=== PATIENT | female | born 1975 | race Caucasian/White ===

== ENCOUNTER 2020-06-01 14:57 | Emergency (ER) | payer OTHER, SELFPAY ==
[2020-06-01 15:09] VITALS: BP 134/86; PULSE 90; RESP 16; O2SAT 98
--- NOTE | 2020-06-01 15:38 | ED.GENADULT ---
HPI - General Adult General Chief complaint: Extremity Injury, Lower Stated complaint: left foot pain Time Seen by Provider: 06/01/20 15:17 Source: patient and RN notes reviewed Mode of arrival: ambulatory Limitations: no limitations History of Present Illness HPI narrative: Patient presents today complaining of a 3-day history of left foot pain. Pain originates in the first MTP and radiates along the plantar aspect of the foot. She does report some tingling to the first toe and medial foot. Pain increases with weightbearing, or movement of the toes and foot. Currently rates her pain 9/10 and has been taking Midol without relief. She has also applied ice. No history of gout. No history of injury or trauma. MD complaint: Left foot pain Related Data Allergies Allergy/AdvReac Type Severity Reaction Status Date / Time hydromorphone Allergy Mild Vomiting Verified 06/01/20 15:01 Review of Systems Review of Systems: Narrative: CONSTITUTIONAL: Denies body aches, fever, chills, or sweats. EYES: Denies visual changes, redness, or discharge. ENT: Denies rhinorrhea, congestion, sore throat, or otalgia. CARDIOVASCULAR: Denies chest pain, palpitations, or edema. RESPIRATORY: Denies cough or dyspnea. GASTROINTESTINAL: Denies abdominal pain, nausea, vomiting, or diarrhea. GENITOURINARY: Denies dysuria or hematuria. SKIN: Denies rash, itching, or wounds. MUSCULOSKELETAL: Denies back pain, or myalgia. + Foot pain NEUROLOGIC: Denies headache, numbness, or weakness. +tingling to left foot PSYCH: Denies depression or anxiety. PMFSH Surgical History Surgical History (Updated 06/01/20 @ 15:59 by Kaylie Wagner, [facility], ) H/O tubal ligation History of cholecystectomy Comments At time of signature, I have reviewed and agree with nursing past medical, surgical, social and family history unless otherwise noted. Please see nursing chart for further information. There is no relevant family history pertinent to the presenting complaint Exam Narrative: Exam Narrative: GENERAL: Well-appearing, well-nourished. Pain out of proportion to exam findings. HEAD: Normocephalic, atraumatic. EYES: EOMI. No redness or drainage. Conjunctivae normal. ENT: Mucous membranes pink and moist. NECK: Normal AROM. Supple. No lymphadenopathy. CHEST: No respiratory distress. Clear to auscultation. HEART: Regular rate and rhythm. No murmur appreciated. Normal peripheral pulses. EXTREMITIES: Left foot:Tenderness, mild erythema to 1st MTP. Tenderness extends proximally along the plantar aspect of the foot. No edema or ecchymosis. Distal sensation. Capillary normal. Pedal pulse normal. Limited AROM due to pain. Right foot normal. No tenderness to the plantar fascia. SKIN: Warm, dry, no rash. Capillary refill normal. Normal skin turgor. NEURO: No focal deficits. Alert and oriented x3. Gait steady. PSYCH: Normal affect. No signs of depression or anxiety. Course Vital Signs Vital signs: Vital Signs Pulse Rate 90 06/01/20 15:09 Respiratory Rate 16 06/01/20 15:09 Blood Pressure 134/86 06/01/20 15:09 Pulse Oximetry 98 06/01/20 15:09 Pulse Rate 90 06/01/20 15:09 Respiratory Rate 16 06/01/20 15:09 Blood Pressure 134/86 06/01/20 15:09 Pulse Oximetry 98 06/01/20 15:09 Reviewed. Pt has been instructed to follow up with her PCP regarding her elevated blood pressure today. Medical Decision Making Differential Diagnosis Differential Diagnosis: Foot strain, fracture, gout, cellulitis, plantar fasciitis, Riggins's neuroma, bunion Vital Signs Vital Signs: Vital Signs Pulse Rate 90 06/01/20 15:09 Respiratory Rate 16 06/01/20 15:09 Blood Pressure 134/86 06/01/20 15:09 Pulse Oximetry 98 06/01/20 15:09 Pulse Rate 90 06/01/20 15:09 Respiratory Rate 16 06/01/20 15:09 Blood Pressure 134/86 06/01/20 15:09 Pulse Oximetry 98 06/01/20 15:09 Critical Care Time Critical Care Time Critical Care Time
== END 2020-06-01 15:44 | disposition home or self-care (01) ==
PROVIDERS: Emergency Provider Nurse Practitioner
DX: M10.9 Gout, unspecified (principal)
CPT/HCPCS: 99213; G0463

== ENCOUNTER 2021-11-21 11:26 | Observation (INO) | payer OTHER, SELFPAY ==
[2021-11-21] VITALS (12 sets, daily range): BP systolic 107–132; BP diastolic 48–83; PULSE 88–125; RESP 14–32; TEMP 36.3–37.3; O2SAT 99–100
--- NOTE | ~2021-11-21 | US_ITS ---
EXAMINATION: US pelvic complete w TV DATE: 11/22/2021 10:38 INDICATION: Pelvic pain. TECHNIQUE: Multiple transabdominal and transvaginal sonographic images of the pelvis were obtained. COMPARISON: CT abdomen and pelvis 11/21/2021 FINDINGS: TRANSABDOMINAL ULTRASOUND: The uterus measures 9.4 x 7.1 x 4.5 cm. There is no free fluid in the pelvis. TRANSVAGINAL ULTRASOUND: The endometrial complex measures 6 mm in thickness. There are nabothian cysts in the cervix. The righ t ovary measures 5.7 x 4.5 x 3.2 cm. There is a 5.0 x 4.0 x 2.4 cm cyst with thin septations in right ovary. The left ovary measures 3.4 x 1.9 x 2.4 cm. There is normal vascular flow in the ovaries. Th ere is physiologic fluid in the pelvis. IMPRESSION: 1. 5.0 x 4.0 x 2.4 cm cyst with thin septations in right ovary, likely benign. The differential diagn osis includes follicular cyst and tubo-ovarian abscess. Reviewed, dictated and finalized at location A. E CARRIAGE OPERATOR IMPRESSION: 1. 5.0 x 4.0 x 2.4 cm cyst with thin septations in right ovary, likely benign. The differential diagnosis includes follicular cyst and tubo-ovarian abscess.
--- NOTE | ~2021-11-21 | CT_ITS ---
EXAMINATION: CT abdomen pelvis w con DATE: 11/21/2021 13:02 INDICATION: Left lower quadrant abdominal pain. TECHNIQUE: Computed tomography (CT) of the abdomen and pelvis was performed with 100 mL Omnipaque 350 intravenous contrast. Automated exposure control and iterative reconstruction technique were employe d. The dose-length product was 232.31 mGy-cm. COMPARISON: CT abdomen 03/04/2007 FINDINGS: The visualized portions of the lung bases are clear without pneumonia or pleural effusion. The heart size is normal. No pericardial effusion. The liver is normal. There are changes of cholecys tectomy. The spleen, pancreas, adrenal glands, and right kidney are normal. There is moderate atrophy of left kidney. There are two 3 mm stones in left kidney. There are no dilated loops of bowel. There is fat stranding in the lower abdomen. There are no pathologically enlarged lymph nodes. There is no free intraperitoneal fluid. There is severe lumbar spondylosis and mild thoracic spondylosis. IMPRESSION: 1. Nonspecific fat stranding in lower abdomen, which may be seen with inflammation or edema. 2. Moderate atrophy of left kidney with two nonobstructing 3 mm stones. Reviewed, dictated and finalized at location A. [facility] IMPRESSION: 1. Nonspecific fat stranding in lower abdomen, which may be seen with inflammat ion or edema. 2. Moderate atrophy of left kidney with two nonobstructing 3 mm stones.
[2021-11-21] MEDS: SODIUM CHLORIDE 0.9% IV 1,000 ML 999 ML IV CONT (12:15)
[2021-11-21] MEDS: FAMOTIDINE 20 MG/2 ML VIAL IV PUSH ×2 (12:16→21:17)
[2021-11-21] MEDS: ONDANSETRON INJ 4 MG/2 ML VIAL IV PUSH (12:16)
[2021-11-21 12:25] LABS: Basophils Percent Auto 0.3 % (0.2-1.2); Hematocrit 36.2 % (37.0-47.0); Hemoglobin 12.2 g/dL (12.0-15.0); Immature Granulocyte Absolute 0.08 K/mm3 (0.00-0.031); Immature Granulocyte Percent A 0.5 % (0-0.5); Lymphocytes Absolute Auto 1.09 K/mm3 (0.9-3.2); Lymphocytes Percent Auto 7.4 % (18.3-44.2); Mean Corpuscular HGB Conc 33.7 g/dl (32-36); Mean Corpuscular Hemoglobin 28.6 pg (26-34); Mean Platelet Volume 9.6 fl (7.4-10.4); Neutrophils Absolute Auto 12.6 K/mm3 (1.3-6.7); Neutrophils Percent Auto 84.8 % (45.5-73.1); Platelet Count Result 258 k/mm3 (150-375); Red Blood Count 4.26 M/mm3 (4.2-5.4); Red Cell Distribution Width 13.5 % (11.5-14.5); White Blood Count 14.8 K/mm3 (4.5-10.0)
[2021-11-21 12:39] LABS: Alanine Aminotransferase 27 U/L (4-35); Albumin Level 3.8 g/dL (3.5-5.1); Alkaline Phosphatase 133 U/L (38-126); Anion Gap 6 mmol/L (8-16); Aspartate Amino Transferase 32 U/L (14-36); Bilirubin,Total 0.8 mg/dL (0.2-1.3); Blood Urea Nitrogen 9 mg/dL (7-17); Calcium 8.4 mg/dL (8.4-10.2); Carbon Dioxide 26 mmol/L (22-30); Chloride 100 mmol/L (98-107); Estimated Glomerular Filt Rate > 60; Glucose 117 mg/dL (65-110); Lipase 54 U/L (23-300); Potassium 3.9 mmol/L (3.4-5.0); Sodium 132 mmol/L (137-145)
[2021-11-21 12:40] LABS: Add Urine Microscopic? YES; Appearance Urine Cloudy (Clear); Bacteria Urine Trace /hpf; Bilirubin Urine Negative (Negative); Blood Urine 2+ (Negative); Budding Yeast Urine Present /hpf; Color Urine Amber (Yellow); Glucose Urine UA Negative (Negative); Ketones Urine Trace mg/dL (Negative); Leukocyte Esterase Ur 3+ LEU/UL (Negative); Mucus Urine Few /lpf; Nitrate Urine Negative (Negative); Protein Urine 2+ mg/dL (Negative); RBC Urine >75 /hpf (0-2); Specific Grav Ur 1.023 (1.001-1.035); Squamous Epithelial Cell Urine Many /hpf (Few); WBC Urine >75 /hpf
[2021-11-21] MEDS: FLUCONAZOLE 150 MG TABLET PO (13:38)
--- NOTE | 2021-11-21 14:20 | PM.IMHP ---
H&P: HPI History of Present Illness Date/Time: 11/21/21 14:20 Chief Complaint: Lower abdominal pain. Narrative: This is a 46-year-old female without significant medical history who presented to the emergency department for evaluation of lower abdominal pain. She reports the insidious onset of diffuse lower abdominal pain for approximately 1 weeks time which she describes as a squeezing or twisting pain though it is occasionally sharp and shooting. It has been constant since the outset and she has moments where it is manageable and there are times when it is quite severe. She has been taking ibuprofen with little benefit. The pain does not radiate and she has not discovered any significant alleviating factors. Her pain is worse with palpation and position changes but again it is pretty constant. Associated symptoms include nausea, emesis x1, subjective fever, and sweats. She was seen by her doctor on 11/17/2021 at which time she was diagnosed with urinary tract infection and she was prescribed Macrobid. Despite compliance with the antibiotic, her symptoms have persisted and have not improved whatsoever. Interestingly she has no urinary symptoms and she specifically denies dysuria, urinary urgency, hesitancy, frequency, and incontinence. With further questioning she endorses vaginal discharge that she describes as white/yellow and similar to discharge she has experienced with yeast infections. She does not think that she has been exposed to sexually transmitted infections. Review of Systems Review of Systems: Twelve systems were reviewed. No cold or flu symptoms. She denies cough. She had a loose stool today. Except as documented, all other systems were reviewed and are negative. [facility] Past Medical History Medical History (Updated 11/21/21 @ 22:04 by Martha Howard PA-C) Depression with anxiety Gastroesophageal reflux disease Migraine headache Surgical History Surgical History (Updated 11/21/21 @ 14:26 by Martha Howard PA-C) History of cholecystectomy History of tubal ligation Family History Family History (Updated 11/21/21 @ 22:00 by Martha Howard PA-C) Other Hypertension Social History Social History (Updated 11/21/21 @ 22:00 by Martha Howard PA-C) Social History: Surrogate decision maker: Isra Moreau, friend. Code status: Full code. Smoking status: Never smoker Alcohol intake: never Substance use: never Substance use type: does not use Meds Home Medications and Allergies Home Medications Medication Instructions Recorded Confirmed Type nitrofurantoin monohyd/m-cryst 100 cap PO Q12H 11/21/21 11/21/21 History Allergies Allergy/AdvReac Type Severity Reaction Status Date / Time hydromorphone Allergy Mild Vomiting Verified 11/21/21 16:00 Vital Signs Vital Signs - 24 hr 11/21/21 11:42 Pulse Rate 125 H Respiratory Rate 16 Blood Pressure 125/70 Pulse Oximetry 100 Exam Narrative: General: Mildly ill-appearing female in the semi-Rubin position. Weight: 66.2 kg. HEENT: PERRL, EOMI. Sclerae anicteric. Tacky mucous membranes. Neck: Supple. Respiratory: Lungs are clear to auscultation bilaterally. Cardiovascular: Regular rate and rhythm with S1-S2. Gastrointestinal: Abdomen is soft and nondistended with positive bowel sounds. She is tender to palpation diffusely throughout the lower abdomen. No guarding or rebound tenderness. No CVA tenderness. Genitourinary: Deferred. Skin: Warm and dry. No rash or lesions on limited exam. Extremities: No cyanosis, clubbing, or edema. Radial and pedal pulses intact. Neurological: Alert. Cranial nerves 2-12 are grossly intact. No gross focal deficits to casual conversation. Psychiatric: Pleasant and cooperative with normal mood and affect. H&P: Results Labs Labs: Short CBC 11/21/21 Range/Units 12:18 WBC 14.8 H (4.5-10.0) K/mm3 Hgb 12.2 (12.0-15.0) g/dL Hct 36.2 L (37.0-47.0) % Plt Count 258 (1
--- NOTE | 2021-11-21 14:22 | ED.GENADULT ---
HPI - General Adult General Chief complaint: Abdominal Pain Stated complaint: abdominal pain Time Seen by Provider: 11/21/21 11:39 Source: patient and RN notes reviewed Mode of arrival: ambulatory Limitations: no limitations History of Present Illness HPI narrative: Patient is a 46-year-old female who presents with severe belly pain that has intensified over the last several days she 5 days ago was started on Macrobid for presumed urinary tract infection with urinary frequency and urgency and left low back pain she notes that since starting the antibiotic she has also developed some white discharge and some vaginal irritation she denies concern for STDs. Denies vomiting does note nausea notes chills sweats as well Related Data Allergies Allergy/AdvReac Type Severity Reaction Status Date / Time hydromorphone Allergy Mild Vomiting Verified 11/21/21 12:19 Review of Systems Review of Systems: All systems reviewed & are unremarkable except as noted in HPI and below PMFSH Surgical History Surgical History H/O tubal ligation History of cholecystectomy Exam Narrative: GENERAL: ill-appearing, well-nourished, uncomfortable appearing, and in no acute distress. HEAD: Normocephalic, atraumatic. EYES: PERRLA and EOMI. ENT: Nares clear, no rhinorrhea or epistaxis. Mucous membranes moist. CHEST: Clear to auscultation. No respiratory distress. No wheezes rales or rhonchi HEART: Regular rate and rhythm. No murmur heard. Normal peripheral pulses. ABDOMEN: Soft, tenderness to palpation across the lower quadrants of the abdomen, nondistended, normal active bowel sounds. EXTREMITIES: Normal range of motion. No edema. SKIN: Warm, dry, no rash. NEURO: No focal deficits. Alert and oriented x3. Cranial nerves II through XII grossly intact PSYCH: Normal mood and affect. Course Course Emergency Course: Patient presented for abdominal pain urinary symptoms found to have urinary tract infection given fluids IV antibiotics will be placed into the hospital her tachycardia is improved with interventions she has continued to have significant discomfort in the lower abdomen so she will be placed in hospital with continued hydration antibiotics and pain management Consultations Consultation #1: Discussed case with hospitalist who has agreed to accept the patient Date: 11/21/21 Time: 14:26 Vital Signs Vital signs: Vital Signs Pulse Rate 125 H 11/21/21 11:42 Respiratory Rate 16 11/21/21 11:42 Blood Pressure 125/70 11/21/21 11:42 Pulse Oximetry 100 11/21/21 11:42 Pulse Rate 125 H 11/21/21 11:42 Respiratory Rate 16 11/21/21 11:42 Blood Pressure 125/70 11/21/21 11:42 Pulse Oximetry 100 11/21/21 11:42 Medical Decision Making MDM Narrative Medical decision making narrative: Patient with likely urinary tract infection and possible yeast infection she was given antibiotic and Diflucan she will be placed in hospital her tachycardia has improved with fluids and medication. Was Vital Signs Vital Signs: Vital Signs Pulse Rate 125 H 11/21/21 11:42 Respiratory Rate 16 11/21/21 11:42 Blood Pressure 125/70 11/21/21 11:42 Pulse Oximetry 100 11/21/21 11:42 Pulse Rate 125 H 11/21/21 11:42 Respiratory Rate 16 11/21/21 11:42 Blood Pressure 125/70 11/21/21 11:42 Pulse Oximetry 11/21/21 11:42 Lab Data Result diagrams: 11/21/21 12:18 11/21/21 12:18 Labs: Lab Results 11/21/21 11/21/21 11/21/21 Range/Units 12:18 12:18 12:18 WBC 14.8 H (4.5-10.0) K/mm3 RBC 4.26 (4.2-5.4) M/mm3 Hgb 12.2 (12.0-15.0) g/dL Hct 36.2 L (37.0-47.0) % MCV 85.0 (80-100) fl MCH 28.6 (26-34) pg MCHC 33.7 (32-36) g/dl RDW 13.5 (11.5-14.5) % Plt Count 258 (150-375) k/mm3 MPV 9.6 (7.4-10.4) fl Immature Gran % (Auto) 0.5 (0-0.5) % Neut % (Auto) 84.8 H (45.5-73.1) % Lymph % (Auto)
[2021-11-21] MEDS: KETOROLAC 30 MG/ML VIAL (*BKC) IV PUSH (14:38)
[2021-11-21] MEDS: LACTATED RINGERS 1,000 ML 125 ML IV CONT (16:11)
[2021-11-21 16:22] LABS: Hematocrit 35.6 % (37.0-47.0); Hemoglobin 11.7 g/dL (12.0-15.0); Mean Corpuscular HGB Conc 32.9 g/dl (32-36); Mean Corpuscular Hemoglobin 28.4 pg (26-34); Mean Corpuscular Volume 86.4 fl (80-100); Mean Platelet Volume 9.7 fl (7.4-10.4); Platelet Count Result 274 k/mm3 (150-375); Red Blood Count 4.12 M/mm3 (4.2-5.4); Red Cell Distribution Width 13.5 % (11.5-14.5); White Blood Count 15.4 K/mm3 (4.5-10.0)
[2021-11-21 16:30] LABS: Lactic Acid Reflex 1.2 mmol/L (0.7-2.1)
--- NOTE | 2021-11-21 16:31 | ADMGEN ---
This patient, Dora Davis, was admitted to Medical Room 250-01. Patient/family oriented to hospital policies and general routines including ID bracelet, bed and alarms, visiting hours, pain management, procedures, bathroom and other care routines, personal items, smoking policy, room service/diet, and visiting hours. Information on how to activate the Rapid Response Team has been discussed. Patient/Family are encouraged to report perceived risks to care and to ask questions if they do not understand what they are told or what they should do.
[2021-11-21 16:59] LABS: CRP 24.4 mg/dL (<1.0)
[2021-11-21] MEDS: MORPHINE SULFATE (*CRX) 2 MG/ML INJ IV PUSH (23:00)
[2021-11-21] MEDS: DOXYCYCLINE 100 MG/NS 100 ML 100 MG/100 ML BAG IVPB (23:01)
[2021-11-22] VITALS (13 sets, daily range): BP systolic 118–130; BP diastolic 55–69; PULSE 88–107; RESP 16–33; TEMP 36.1–37.1; O2SAT 95–100
[2021-11-22] MEDS: HYDROcodone/acetaminophen (*CRX) 5-325 MG TABLET 1 TAB PO (00:07)
[2021-11-22] MEDS: metroNIDAZOLE 500 MG/ISO 100ML 500 MG/100 ML BAG 100 MG IVPB ×3 (00:07→23:34)
[2021-11-22] MEDS: MORPHINE SULFATE (*CRX) 2 MG/ML INJ IV PUSH ×2 (03:29→09:01)
[2021-11-22 05:38] LABS: Basophils Percent Auto 0.3 % (0.2-1.2); Eosinophils Absolute Auto 0.1 K/mm3 (0-0.3); Eosinophils Percent Auto 0.4 % (0-4.4); Hemoglobin 10.5 g/dL (12.0-15.0); Immature Granulocyte Absolute 0.09 K/mm3 (0.00-0.031); Immature Granulocyte Percent A 0.7 % (0-0.5); Lymphocytes Absolute Auto 1.05 K/mm3 (0.9-3.2); Lymphocytes Percent Auto 8.5 % (18.3-44.2); Mean Corpuscular HGB Conc 32.8 g/dl (32-36); Mean Corpuscular Hemoglobin 28.4 pg (26-34); Mean Corpuscular Volume 86.5 fl (80-100); Mean Platelet Volume 9.6 fl (7.4-10.4); Monocytes Percent Auto 7.8 % (2.6-8.5); Neutrophils Absolute Auto 10.1 K/mm3 (1.3-6.7); Neutrophils Percent Auto 82.3 % (45.5-73.1); Platelet Count Result 242 k/mm3 (150-375); Red Cell Distribution Width 13.5 % (11.5-14.5); White Blood Count 12.3 K/mm3 (4.5-10.0)
[2021-11-22 05:53] LABS: Anion Gap 6 mmol/L (8-16); Blood Urea Nitrogen 11 mg/dL (7-17); Carbon Dioxide 25 mmol/L (22-30); Chloride 105 mmol/L (98-107); Estimated Glomerular Filt Rate > 60; Glucose 121 mg/dL (65-110); Magnesium 1.9 mg/dL (1.6-2.3); Sodium 136 mmol/L (137-145)
--- NOTE | 2021-11-22 09:19 | WPDCN ---
Assessment and Plan Assessment and plan (1) Pelvic pain: Code(s): R10.2 - Pelvic and perineal pain Status: Acute Assessment and Plan: Check pelvic ultrasound (order entered) to image uterus and ovaries. I plan to give update after U/S performed (2) Menorrhagia: Code(s): N92.0 - Excessive and frequent menstruation with regular cycle Status: Acute Assessment and Plan: Check pelvic ultrasound. She would benefit from treatment as outpatient. 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 Coughing, sneezing, bending all exacerbate it. She reports periods Q2-3 weeks lasting 6-7 days heavy bleeding for past year or so. No Cp, SOB, dizziness. Occasional nausea and emesis. She has had both constipation and diarrhea over past few days. She has beige creamy vaginal discharge with slight odor. Last intercourse over 1 month ago. No vaginal itching or burning. + dysuria, hematuria, and frequency. Her boyfriend, who she had been living with, 08/2021. She was evicted from their apartment and is now homeless. [facility] but had to return the vehicle. She has had a hard time keeping a job due to no transportation Review of Systems Review of Systems: All systems reviewed & are unremarkable except as noted in HPI and below PMFSH Past Medical History Medical History (Updated 11/22/21 @ 09:25 by Yvonne Hennessy MD) Depression with anxiety Gastroesophageal reflux disease Migraine headache Surgical History Surgical History (Updated 11/21/21 @ 14:26 by Martha Howard PA-C) History of cholecystectomy History of tubal ligation Family History Family History (Updated 11/21/21 @ 22:00 by Martha Howard PA-C) Other Hypertension Social History Social History (Updated 11/21/21 @ 22:00 by Martha Howard PA-C) Social History: Surrogate decision maker: Isra Moreau, friend. Code status: Full code. Smoking status: Never smoker Alcohol intake: never Substance use: never Substance use type: does not use Meds Home Medications and Allergies Home Medications Medication Instructions Recorded Confirmed Type nitrofurantoin monohyd/m-cryst 100 cap PO Q12H 11/21/21 11/21/21 History Allergies Allergy/AdvReac Type Severity Reaction Status Date / Time hydromorphone Allergy Mild Vomiting Verified 11/21/21 16:00 Vital Signs Vital Signs - 24 hr 11/21/21 11:35 11/21/21 11:42 11/21/21 11:45 Temperature Pulse Rate 125 H 121 H Respiratory Rate 16 15 Blood Pressure 125/70 Pulse Oximetry 100 100 100 11/21/21 12:00 11/21/21 12:15 11/21/21 12:30 Temperature Pulse Rate 117 H 116 H 113 H Respiratory Rate 29 H 26 H 32 H Blood Pressure Pulse Oximetry 100 100 99 11/21/21 14:10 11/21/21 14:15 11/21/21 14:30 Temperature Pulse Rate 108 H 96 97 Respiratory Rate 14 22 H 22 H Blood Pressure 131/83 Pulse Oximetry 100 100 11/21/21 15:12 11/21/21 16:00 11/21/21 19:54 Temperature 37.3 C 36.3 C L Pulse Rate 105 H 88 97 Respiratory Rate 16 18 18 Blood Pressure 132/70 107/66 108/48 L Pulse Oximetry 100 100 100 11/22/21 00:00 11/22/21 00:34 11/22/21 00:36 Temperature 36.9 C Pulse Rate 106 H Respiratory Rate 18 Blood Pressure 122/55 L Pulse Oximetry 100 02
--- NOTE | 2021-11-22 10:33 | PM.IMPN ---
Progress Note: A&P Assessment and Plan (1) Combined abdominal and pelvic pain: Code(s): R10.9 - Unspecified abdominal pain; R10.2 - Pelvic and perineal pain Status: Acute Assessment and Plan: Presented with diffuse low abdominal/pelvic pain and CT of the abdomen/pelvis showed fat stranding in the lower abdomen appreciate Gynecology consultation transvaginal ultrasound is pending continue with ceftriaxone, doxycycline, and metronidazole given her complains of vaginal discharge she had a 1 time dose of Diflucan in the emergency department will check gonorrhea, chlamydia, RPR, hepatitis, HIV mild leukocytosis is improving. Patient is afebrile. (2) Abnormal computed tomography of abdomen and pelvis: Code(s): R93.5 - Abnormal findings on diagnostic imaging of other abdominal regions, including retroperitoneum Status: Acute Assessment and Plan: please see above (3) Abnormal urinalysis: Code(s): R82.90 - Unspecified abnormal findings in urine Status: Acute Assessment and Plan: UA was abnormal on presentation. Patient denies urinary symptoms with the exception of a single episode of hematuria that has since resolved urine culture is pending continue IV Rocephin as above (4) Nephrolithiasis: Code(s): N20.0 - Calculus of kidney Status: Acute Assessment and Plan: CT showed moderate atrophy of left kidney with two nonobstructing 3 mm stones unlikely to be contributing to symptoms (5) Depression with anxiety: Code(s): F41.8 - Other specified anxiety disorders Status: Acute Assessment and Plan: Patient has history of depression and anxiety Many current social issues including of her partner, loss of her job, and eviction from her apartment Currently staying with her sons friend. Appreciate care coordination consult She will benefit from referral to a therapist/counselor Denies suicidal ideation Subjective Date/time seen: 11/22/21 10:33 Interval history: Date of service: 11/22/2021 Dora Davis is a 46-year-old female with a history of depression, anxiety, GERD, migraines who is seen in follow up for abdominal pain. she stated that for the past 1 week she has had right lower quadrant pain and has been diffusely tender across the lower abdomen, occasionally radiating to her right lower back. States her pain is worse if she coughs or sneezes. At this time her pain is 8/10. she denies fever or chills but does endorse sweats. She denies dysuria, frequency, urgency. She does state that she had some hematuria that she described as like my period Though she had her menstrual cycle over 1 week ago. Yesterday she had a loose stool. Also yesterday she had a single episode of creamy vaginal discharge. It was not clumpy or like cottage cheese. no more vaginal discharge or bleeding today. She states that she is not concerned sexually transmitted infections. She has had a recent partner and states that they were in a monogamous relationship though they did not use protection against STDs. She said he never mentioned any concerns about STDs when she had been with him at the doctor in the past. unfortunately this partner has and she has been having a difficult time coping with his loss. She has many other social issues going on at this time as well. She was recently let go from her job at [email or web address] and was subsequently evicted from her apartment about 2 weeks ago. She is currently staying with her son's friend, though notes that he may be evicted soon too. She would like to speak with a laboratory animal caretaker. Review of Systems Review of Systems: All systems reviewed & are unremarkable except as noted in HPI and below Exam Narrative: General: thin, well-appearing 46 year-old female, sitting up in bed, comfortable, NARD Neuro: awake, alert and oriented x4, speech clear, no focal n
[2021-11-22] MEDS: DOXYCYCLINE 100 MG/NS 100 ML 100 MG/100 ML BAG IVPB ×2 (11:25→22:39)
[2021-11-22 11:28] LABS: Hepatitis B Surface Antigen Negative (Negative)
[2021-11-22 11:33] LABS: HAV RESULT Negative (Negative); Hepatitis B Core IgM Result Negative (Negative)
[2021-11-22 11:37] LABS: HIV 1/2 Ab P24 Ag Result Negative (Negative)
[2021-11-22 11:45] LABS: Hepatitis C Virus Antibody Negative (Negative)
[2021-11-22] MEDS: ACETAMINOPHEN 325 MG TABLET 650 MG PO ×2 (13:53→21:10)
[2021-11-22] MEDS: polyethylene glycoL 3350 17 GM POWD.PACK PO (15:01)
--- NOTE | 2021-11-22 16:49 | PC.NURSE ---
On 11/22/2021, the student, Zora Centeno, provided care and completed [facility] documentation on this patient. I have reviewed this student's documentation and agree with the findings.
[2021-11-22] MEDS: DOCUSATE SODIUM 100 MG CAPSULE PO (21:09)
[2021-11-23 04:13] VITALS: BP 130/64; PULSE 80; RESP 18; TEMP 36.2; O2SAT 100
[2021-11-23 05:51] LABS: Hematocrit 31.2 % (37.0-47.0); Hemoglobin 10.4 g/dL (12.0-15.0); Mean Corpuscular HGB Conc 33.3 g/dl (32-36); Mean Corpuscular Volume 83.9 fl (80-100); Mean Platelet Volume 9.8 fl (7.4-10.4); Platelet Count Result 286 k/mm3 (150-375); Red Blood Count 3.72 M/mm3 (4.2-5.4); Red Cell Distribution Width 13.5 % (11.5-14.5); White Blood Count 7.5 K/mm3 (4.5-10.0)
[2021-11-23 05:56] LABS: Rapid Plasma Reagin Non-Reactive (NonReactive)
[2021-11-23 06:35] LABS: Anion Gap 11 mmol/L (8-16); Blood Urea Nitrogen 7 mg/dL (7-17); CRP 22.4 mg/dL (<1.0); Calcium 8.6 mg/dL (8.4-10.2); Carbon Dioxide 25 mmol/L (22-30); Chloride 103 mmol/L (98-107); Estimated Glomerular Filt Rate > 60; Glucose 101 mg/dL (65-110); Potassium 3.8 mmol/L (3.4-5.0); Sodium 139 mmol/L (137-145)
[2021-11-23] MEDS: ACETAMINOPHEN 325 MG TABLET 650 MG PO (07:35)
[2021-11-23] MEDS: DOCUSATE SODIUM 100 MG CAPSULE PO ×2 (07:40→20:15)
[2021-11-23 10:00] VITALS: BP 139/79; PULSE 83; RESP 16; TEMP 36.3; O2SAT 100
[2021-11-23] MEDS: DOXYCYCLINE 100 MG/NS 100 ML 100 MG/100 ML BAG IVPB ×2 (10:02→23:33)
[2021-11-23] MEDS: metroNIDAZOLE 500 MG/ISO 100ML 500 MG/100 ML BAG 100 MG IVPB ×2 (11:00→23:31)
--- NOTE | 2021-11-23 12:27 | PM.GYNPNOP ---
SCRAP CUTTER - A/P Assessment and plan (1) Right ovarian cyst: Code(s): N83.201 - Unspecified ovarian cyst, right side Status: Acute Assessment and Plan: 5 cm right ovarian cyst vs TOA. She is agreeable to start control pill to help cyst resolve more quickly and has no contraindication. Will plan repeat U/S in 6-8 weeks (will arrange as outpatient). Since this also could be a TOA, which is an infectious process, I would recommend continuing antibiotics as outpatient to complete 14 day course. Flagyl and doxycycline would be apropriate as long as she agrees no to drink alcohol while taking it (2) Menorrhagia: Code(s): N92.0 - Excessive and frequent menstruation with regular cycle Status: Acute Assessment and Plan: control also should help with frequent heavy periods. Will follow up as outpatient within the next month or so to see how bleeding and pain is, and to arrange repeat U/S. She also hasn't had pap in around 14 years, so we'll plan that in the office setting as well (3) Pelvic pain: Code(s): R10.2 - Pelvic and perineal pain Status: Acute Assessment and Plan: Improving Time Spent With Patient Time: Total time spent is greater than 50% in coordination of care (as documented) at patient's floor/unit and/or counseling patient: Time with patient: less than 15 minutes SCRAP CUTTER- PN:Subj Post-Op Subjective Date/time seen: 11/23/21 12:27 She is feeling much better today. Most of her pain has resolved. She still has lower right back pain and RLQ pain, which is much less severe than yesterday. No N/V. No new complaints Interval history: Date of service: 11/22/2021 Dora Davis is a 46-year-old female with a history of depression, anxiety, GERD, migraines who is seen in follow up for abdominal pain. she stated that for the past 1 week she has had right lower quadrant pain and has been diffusely tender across the lower abdomen, occasionally radiating to her right lower back. States her pain is worse if she coughs or sneezes. At this time her pain is 8/10. she denies fever or chills but does endorse sweats. She denies dysuria, frequency, urgency. She does state that she had some hematuria that she described as like my period Though she had her menstrual cycle over 1 week ago. Yesterday she had a loose stool. Also yesterday she had a single episode of creamy vaginal discharge. It was not clumpy or like cottage cheese. no more vaginal discharge or bleeding today. She states that she is not concerned sexually transmitted infections. She has had a recent partner and states that they were in a monogamous relationship though they did not use protection against STDs. She said he never mentioned any concerns about STDs when she had been with him at the doctor in the past. unfortunately this partner has and she has been having a difficult time coping with his loss. She has many other social issues going on at this time as well. She was recently let go from her job at [employer] and was subsequently evicted from her apartment about 2 weeks ago. She is currently staying with her son's friend, though notes that he may be evicted soon too. She would like to speak with a medicare biller. Review of Systems Review of Systems: All systems reviewed & are unremarkable except as noted in HPI and below Exam Const: General: healthy appearing, no acute distress, alert and awake Resp: Auscultation: clear to auscultation bilaterally Cardio: Rate: regular rate Rhythm: regular rhythm GI: Inspection: non-distended GI Palp: Yes Tenderness to palpation present (GI) (mild RLQ), No Guarding due to palpation present (GI) and No Rebound tenderness present Extrem: General: no pedal edema and no calf tenderness Psych: Mental Status: mental status grossly normal SCRAP CUTTER - PN: Obj Data Vital Signs Vital Signs: Vital Signs - 24 hr 11/22/21 14:38 11/22/21 18:25 11/22/21
[2021-11-23 14:00] VITALS: BP 135/84; PULSE 87; RESP 18; TEMP 36.1; O2SAT 100
--- NOTE | 2021-11-23 16:24 | PM.IMPN ---
Progress Note: A&P Assessment and Plan (1) Combined abdominal and pelvic pain: Code(s): R10.9 - Unspecified abdominal pain; R10.2 - Pelvic and perineal pain Status: Acute Assessment and Plan: Presented with diffuse low abdominal/pelvic pain and CT of the abdomen/pelvis showed fat stranding in the lower abdomen appreciate Gynecology consultation transvaginal ultrasound showed cyst of the right ovary, likely benign with differential including tubo-ovarian abscess per CASHIER MANAGER, she will be started on OCPs to help cyst resolve continue with doxycycline, and metronidazole given concerns for possible TOA. Will plan to complete 14 total days of antibiotics she had a 1 time dose of Diflucan in the emergency department gonorrhea and chlamydia pending. RPR, hepatitis, HIV negative. leukocytosis is improving. CRP trending down slightly and will recheck tomorrow. Patient is afebrile. she is aware of need for outpatient gynecology follow up (2) Right ovarian cyst: Code(s): N83.201 - Unspecified ovarian cyst, right side Status: Acute Assessment and Plan: Please see above (3) Abnormal urinalysis: Code(s): R82.90 - Unspecified abnormal findings in urine Status: Acute Assessment and Plan: UA was abnormal on presentation. Patient denies urinary symptoms with the exception of a single episode of hematuria that has since resolved urine culture negative discontinue IV rocephin (4) Nephrolithiasis: Code(s): N20.0 - Calculus of kidney Status: Acute Assessment and Plan: CT showed moderate atrophy of left kidney with two nonobstructing 3 mm stones unlikely to be contributing to symptoms (5) Depression with anxiety: Code(s): F41.8 - Other specified anxiety disorders Status: Acute Assessment and Plan: Patient has history of depression and anxiety Many current social issues including of her partner, loss of her job, and eviction from her apartment Currently staying with her sons friend. Appreciate care coordination consult She will benefit from referral to a therapist/counselor Denies suicidal ideation Subjective Date/time seen: 11/23/21 16:24 Interval history: Date of service: 11/23/2021 Dora Davis is a 46-year-old female with a history of depression, anxiety, GERD, migraines who is seen in follow up for painful ovarian cyst. She feels better today. Her abdominal and lower pelvic pain has resolved. She does still have some left sided discomfort in the back but this has improved. Denies N/V, fever, chills. Appetite is good. No urinary symptoms. No hematuria. No vaginal discharge. Feeling much better today. Review of Systems Review of Systems: All systems reviewed & are unremarkable except as noted in HPI and below Exam Narrative: General: thin, well-appearing 46 year-old female, sitting up in bed, comfortable, NARD Neuro: awake, alert and oriented x4, speech clear, no focal neuro deficits noted HEENMT: normocephalic, atraumatic, EOMI, sclerae anicteric Respiratory: clear to auscultation bilaterally, nonlabored breathing Cardio: regular rate, regular rhythm with S1-S2 Abdomen: nondistended, normoactive bowel sounds, soft, nontender to palpation : no CVA tenderness Extremities: no edema, erythema, or tenderness to palpation, DP pulses 2+ bilaterally Skin: no rashes or lesions, warm and dry Psych: appropriate mood and affect, judgment and insight intact Objective Data Vital Signs Vital Signs: Vital Signs - 24 hr 11/22/21 18:25 11/22/21 19:34 11/22/21 21:15 Temperature 98.1 F 98.8 F Pulse Rate 93 90 Respiratory Rate 18 17 18 Blood Pressure 130/65 123/56 L Pulse Oximetry 100 100 100 11/22/21 21:20 11/22/21 23:41 11/23/21 04:13 Temperature 97 F L 97.2 F L Pulse Rate 90 80 Respiratory Rate 17 18 Blood Pressure 121/62 130/64 Pulse Oximetry 99 100 100 11/23/21 10:00 11/23
[2021-11-23 18:00] VITALS: BP 139/88; PULSE 92; RESP 18; TEMP 36.2; O2SAT 100
[2021-11-23 20:00] VITALS: PULSE 92; RESP 18; O2SAT 100
[2021-11-23 21:40] VITALS: BP 130/86; PULSE 85; RESP 16; TEMP 36.7; O2SAT 98
[2021-11-24 02:00] VITALS: BP 126/88; PULSE 80; RESP 14; TEMP 37; O2SAT 100
[2021-11-24 03:19] VITALS: O2SAT 100
[2021-11-24 06:00] VITALS: BP 124/66; PULSE 89; RESP 14; TEMP 36.4; O2SAT 100
[2021-11-24 06:39] LABS: CRP 14.7 mg/dL (<1.0)
[2021-11-24 07:07] VITALS: BMI 24.8
[2021-11-24] MEDS: DOCUSATE SODIUM 100 MG CAPSULE PO (08:51)
--- NOTE | 2021-11-24 10:58 | PC.NURSE ---
On 11/24/21, the student, [Trish Marshall], provided care and completed [facility] documentation on this patient. I have reviewed the student's documentation and agree with the findings.
[2021-11-24] MEDS: DOXYCYCLINE 100 MG/NS 100 ML 100 MG/100 ML BAG IVPB (11:11)
[2021-11-24] MEDS: metroNIDAZOLE 500 MG/ISO 100ML 500 MG/100 ML BAG 100 MG IVPB (11:12)
--- NOTE | 2021-11-24 12:48 | PM.DS ---
DS: Admitting Diagnosis Discharge Date 11/24/2021 Admitting Diagnosis Abdominal pain DS: Discharge Diagnosis Discharge Diagnosis (1) Combined abdominal and pelvic pain: Code(s): R10.9 - Unspecified abdominal pain; R10.2 - Pelvic and perineal pain Status: Acute Assessment and Plan: Presented with diffuse low abdominal/pelvic pain and CT of the abdomen/pelvis showed fat stranding in the lower abdomen She was seen in consultation by Gynecology transvaginal ultrasound showed cyst of the right ovary, likely benign with differential including tubo-ovarian abscess She was started on OCPs to help cyst resolve per Gynecology recommendations Treated with IV Doxycycline and Metronidazole given concerns for possible TOA and she will continue PO antibiotics to complete a 14 day course. She had a 1 time dose of Diflucan in the emergency department Gonorrhea and chlamydia RNA pending, will monitor. RPR, hepatitis, HIV negative. Leukocytosis resolved. CRP trended down. Patient remained afebrile. She is aware of need for outpatient gynecology follow up (2) Right ovarian cyst: Code(s): N83.201 - Unspecified ovarian cyst, right side Status: Acute Assessment and Plan: Please see above (3) Abnormal urinalysis: Code(s): R82.90 - Unspecified abnormal findings in urine Status: Acute Assessment and Plan: UA was abnormal on presentation. Patient denied urinary symptoms with the exception of a single episode of hematuria that subsequently resolved Urine culture negative Rocephin was discontinued upon negative culture (4) Nephrolithiasis: Code(s): N20.0 - Calculus of kidney Status: Acute Assessment and Plan: CT showed moderate atrophy of left kidney with two nonobstructing 3 mm stones Unlikely to be contributing to symptoms, no further evaluation required (5) Depression with anxiety: Code(s): F41.8 - Other specified anxiety disorders Status: Acute Assessment and Plan: Patient has history of depression and anxiety Many current social issues including of her partner, loss of her job, and eviction from her apartment Currently staying with her sons friend and she reports this is a safe environment. Resources provided per care coordination. She will benefit from referral to a therapist/counselor Denied suicidal ideation DS: Summary Hospital Course Hospital Course: Date of admission: 11/21/2021 Date of discharge: 11/24/2021 Dora Davis is a 46-year-old female with a history of depression, anxiety, GERD, migraines who presented to the emergency department on 11/21/2021 with complaints of severe abdominal pain ongoing for 5 days with an episode of white vaginal discharge. She was admitted to the hospitalist service for further evaluation and management and was seen in consultation by Gynecology. Please see above for further details. She was treated with IV antibiotics for coverage of tubo-ovarian abscess and will continue PO antibiotics to complete 14 day course. She had overall improvement and felt comfortable with discharge home. She was discharged in hemodynamically stable condition on 11/24/2021. Status at Discharge Functional status at discharge: independent ambulation Overall status at discharge: patient is progressing back to baseline Time Spent with Patient Time attestation: Total time spent providing and/or coordinating discharge services:40 minutes Time spent: Greater than 30 minutes Exam Narrative: General: thin, well-appearing 46 year-old female, sitting up in bed, comfortable, NARD Neuro: awake, alert and oriented x4, speech clear, no focal neuro deficits noted HEENMT: normocephalic, atraumatic, EOMI, sclerae anicteric Respiratory: clear to auscultation bilaterally, nonlabored breathing Cardio: regular rate, regular rhythm with S1-S2 Abdomen: nondistended, normoactive bowel sounds, soft, no
[2021-11-24 14:40] VITALS: BP 145/77; PULSE 104; RESP 16; TEMP 36.6; O2SAT 97
== END 2021-11-24 15:06 | disposition home or self-care (01) ==
LOC: ANHED 14:31 → ANH2MED 14:54
PROVIDERS: Emergency Medicine Emergency Medical Services; Physician Assistant; Admitting Provider Hospitalist; Emergency Provider Emergency Medicine; PCP Emergency Medicine; Visit Provider Family Medicine
DX: N83.201 Unspecified ovarian cyst, right side (principal); R10.2 Pelvic and perineal pain; R93.5 Abnormal findings on diagnostic imaging of other abdominal regions, including retroperitoneum; R82.90 Unspecified abnormal findings in urine; N20.0 Calculus of kidney; N92.0 Excessive and frequent menstruation with regular cycle; N89.8 Other specified noninflammatory disorders of vagina; K21.9 Gastro-esophageal reflux disease without esophagitis; F41.8 Other specified anxiety disorders; Z11.4 Encounter for screening for human immunodeficiency virus [HIV]
CPT/HCPCS: 36415; 74177; 76830; 76856; 80048; 80053; 80074; 81001; 81025; 83605; 83690; 83735; 85025; 85027; 86140; 86592; 86703; 87086; 87491; 87591; 96361; 96365; 96366; 96367; 96375; 96376; 99285; A9270; G0378; G0379; G0432; J0131; J0696; J1885; J2270; J2405; J7030; J7120; Q9967

== ENCOUNTER 2023-02-23 08:45 | Emergency (ER) | payer OTHER, SELFPAY ==
[2023-02-23] VITALS (12 sets, daily range): BP systolic 136–143; BP diastolic 62–73; PULSE 80–89; RESP 16; O2SAT 96–100
--- NOTE | 2023-02-23 10:03 | ED.NECK ---
HPI - Neck Pain/Injury General Chief Complaint: Neck Pain/Injury Stated Complaint: neck pain Time Seen by Provider: 02/23/23 09:25 History of Present Illness HPI Narrative: 47-year-old female here for evaluation of left-sided neck pain x4 days. Patient states that she slept on her neck in a strange position and since then she been having soreness in the left side. Worse with certain positions of her head. She has not attempted any pain medicine for her symptoms. No fevers, chills, nausea, vomiting, weakness, numbness or tingling. No trauma to the neck. No history of IV drug use. Related Data Allergies Allergy/AdvReac Type Severity Reaction Status Date / Time hydromorphone Allergy Mild Vomiting Verified 02/23/23 09:03 Review of Systems Review of Systems: Gen: Denies fevers or chills Eyes: Denies eye pain or visual change ENT: Denies congestion Respiratory: Denies shortness of breath or cough CV: Denies chest pain or palpitations GI: Denies abdominal pain nausea, emesis or diarrhea denies burning, urgency, frequency or hematuria Musculoskeletal: Reports neck pain Neuro: Denies numbness, tingling, weakness or focal weakness Skin: Denies rash Except as documented, all other systems reviewed and negative PMFSH Past Medical History Medical History Depression with anxiety Gastroesophageal reflux disease Migraine headache Surgical History Surgical History History of cholecystectomy History of tubal ligation Family History Family History (Updated 11/21/21 @ 22:00 by Martha Howard PA-C) Other Hypertension Social History Social History (Updated 11/21/21 @ 22:00 by Martha Howard PA-C) Social History: Surrogate decision maker: Isra Lizzeth, friend. Code status: Full code. Smoking status: Never smoker Alcohol intake: never Substance use: never Substance use type: does not use Exam Narrative: APPEARANCE: Well appearing, no pain in distress, well-nourished. Head: Normocephalic and atraumatic. EYES: PERRLA/EOMI, conjunctivae clear NOSE: No nasal drainage EARS: External ear normal in appearance THROAT: Oropharynx is clear. Mucous membranes are moist. NECK: Supple. No adenopathy, no masses. RESPIRATORY: Airway patent, respirations nonlabored. Clear to auscultation bilaterally, no rales, rhonchi, wheezing. CARDIOVASCULAR: Regular rate and rhythm without murmurs, rubs, or gallops. ABDOMINAL: Normoactive bowel sounds. Soft, nontender, nondistended. No rebound tenderness or guarding. MUSCULOSKELETAL: No midline tenderness to the C, T or L-spine. There is paraspinal muscle tenderness along the left trapezius muscle near the cervical muscles. Extremities are warm and well-perfused. Moves all extremities well. No edema. NEURO: Normal speech. No focal neurologic deficits. SKIN: Skin is warm and dry. No rashes. PSYCHIATRIC: Normal affect/mood.. Course Vital Signs Vital signs: Vital Signs Pulse Oximetry 99 02/23/23 08:55 Pulse Rate 80 02/23/23 10:42 Respiratory Rate 16 02/23/23 10:42 Blood Pressure 137/67 02/23/23 10:42 Pulse Oximetry 100 02/23/23 10:42 Oxygen Delivery Room Air 02/23/23 08:59 MDM - Neck Pain/Injury MDM Narrative Medical decision making narrative: 47-year-old female here for evaluation of neck pain over the past several days which she attributes to MSK sprain. She has had no systemic symptoms or midline tenderness on exam. Likely sprain of her trapezius. Pain improved after conservative measures in the ED. Will send home with PMD follow-up. Discharge Plan Discharge Clinical Impression: Neck muscle strain Patient Disposition: Home, Self-Care Condition: Stable Instructions: Antibiotic Form, Neck Pain (ED) Additional Instructions: Your pain today is likely due to a neck sprain. Alternate betw
[2023-02-23] MEDS: CYCLOBENZAPRINE HCL 5 MG TABLET PO (10:10)
[2023-02-23] MEDS: KETOROLAC 30 MG/ML VIAL (*BKC) IM (10:10)
[2023-02-23] MEDS: LIDOCAINE 5% PATCH 1 PATCH TRANSDERM (10:11)
[2023-02-23] MEDS: ONDANSETRON HCL ODT 4 MG TABLET PO (10:22)
== END 2023-02-23 10:43 | disposition home or self-care (01) ==
PROVIDERS: Emergency Provider Physician Assistant; PCP Emergency Medicine
DX: S16.1XXA Strain of muscle, fascia and tendon at neck level, initial encounter (principal); K21.9 Gastro-esophageal reflux disease without esophagitis; Z90.49 Acquired absence of other specified parts of digestive tract; X50.9XXA Other and unspecified overexertion or strenuous movements or postures, initial encounter
CPT/HCPCS: 96372; 99283; A9270; J1885

== ENCOUNTER 2023-12-30 20:02 | Emergency (ER) | payer OTHER, SELFPAY ==
--- NOTE | ~2023-12-30 | CT_ITS ---
EXAMINATION: CT lumbar spine wo con DATE: 12/30/2023 21:02 INDICATION: low back pain radiating down right leg . TECHNIQUE: Computed tomography (CT) of the lumbar spine was performed without intravenous contrast. A utomated exposure control and iterative reconstruction technique were employed. The dose-length produ ct was 433.25 mGy-cm. COMPARISON: X-ray L-spine 03/26/2006. FINDINGS: Moderate lumbar scoliosis. 5 nonrib-bearing lumbar-type vertebral bodies. Pedicles intact. 3 mm anterolisthesis at L2-3. 2 mm retrolisthesis at C3-4. 3 mm retrolisthesis at L5-S1. Vertebral eloise dy heights preserved. Multilevel disc space narrowing and marginal osteophytosis, severe at L3-4 thro ugh L5-S1. Multilevel facet hypertrophy and sclerosis. Left renal atrophy. Atherosclerotic calcificat ions. Multilevel moderate central canal narrowing, no severe central canal narrowing. Severe right ne ural foraminal narrowing at L3-4. Severe left neural foraminal narrowing at L5-S1. IMPRESSION: No acute fracture or traumatic malalignment in the lumbar spine. Multilevel grade 1 listheses. Multilevel severe degenerative disc disease. Multilevel facet arthropat hy. Severe neural foraminal narrowing on the right at L3-4 and on the left at L5-S1. Reviewed, dictated and finalized at location K. IMPRESSION: No acute fracture or traumatic malalignment in the lumbar spine. Multilevel grade 1 listheses. Multilevel severe degenerative disc disease. Mult ilevel facet arthropathy. Severe neural foraminal narrowing on the right at L3- 4 and on the left at L5-S1.
[2023-12-30 20:14] VITALS: BP 175/58; PULSE 111; RESP 16; TEMP 36.6; O2SAT 100
[2023-12-30] MEDS: ACETAMINOPHEN 500 MG TABLET 1000 MG PO (21:09)
[2023-12-30] MEDS: KETOROLAC 30 MG/ML VIAL (*BKC) IM (21:09)
--- NOTE | 2023-12-30 21:25 | ED.BACK ---
HPI - Back Pain/Injury General Chief Complaint: Back Pain/Injury Stated Complaint: BACK PAIN Time Seen by Provider: 12/30/23 20:22 Source: patient Mode of arrival: ambulatory Limitations: no limitations History of Present Illness HPI Narrative: This is a 48 year old female that presents to the ER for low back pain. Ongoing over the last month. Reports the pain radiates into her right buttock and down the leg. Worse with movement. She has been using over the counter lidocaine patches and heat to the area with little relief. Denies fever, numbness or weakness. Related Data Allergies Allergy/AdvReac Type Severity Reaction Status Date / Time hydromorphone Allergy Mild Vomiting Verified 12/30/23 20:17 Review of Systems Review of Systems: CONSTITUTIONAL: Denies fever SKIN: Denies rash MUSCULOSKELETAL: Reports back pain, joint pain, and myalgia. NEUROLOGIC: Denies numbness, or weakness. All systems reviewed & are unremarkable except as noted in HPI and below PMFSH Past Medical History Medical History Depression with anxiety Gastroesophageal reflux disease Migraine headache Surgical History Surgical History History of cholecystectomy History of tubal ligation Family History Family History (Updated 11/21/21 @ 22:00 by Martha Howard PA-C) Other Hypertension Social History Social History (Updated 11/21/21 @ 22:00 by Martha Howard PA-C) Social History: Surrogate decision maker: Isra Moreau, friend. Code status: Full code. Smoking status: Never smoker Alcohol intake: never Substance use: never Substance use type: does not use Exam Narrative: GENERAL: Well-appearing, well-nourished, and in no acute distress. HEAD: Normocephalic, atraumatic. EYES: EOMI. CHEST: Clear to auscultation. No respiratory distress. No wheezes rales or rhonchi HEART: Regular rate and rhythm. No murmur heard. Normal peripheral pulses. BACK: No midline spinal tenderness. EXTREMITIES: Normal range of motion. No edema. Strength equal in bilateral lower extremities (5/5). Normal gait SKIN: Warm, dry, no rash. NEURO: No focal deficits. Alert and oriented x3. PSYCH: Normal mood and affect Course Course Emergency Course: Patient updated on workup and agrees with plan of care Vital Signs Vital signs: Vital Signs Temperature 97.8 F 12/30/23 20:14 Pulse Rate 111 H 12/30/23 20:14 Respiratory Rate 16 12/30/23 20:14 Blood Pressure 175/58 H 12/30/23 20:14 Pulse Oximetry 100 12/30/23 20:14 Temperature 97.8 F 12/30/23 20:14 Pulse Rate 95 12/30/23 22:08 Respiratory Rate 20 12/30/23 22:08 Blood Pressure 144/77 H 12/30/23 22:08 Pulse Oximetry 100 12/30/23 22:08 MDM - Back Pain/Injury MDM Narrative Medical decision making narrative: Patient presents to the emergency department for low back pain ongoing over the last month. She is afebrile and nontoxic appearing. She is neurologically intact. CT lumbar spine is without acute findings. Shows degenerative disc disease, facet arthropathy, and neural foraminal narrowing on the right at L3/L4 as well of on the left at L5/S1. Patient was updated on her workup. Instructed to continue Tylenol and anti-inflammatories. Will be given muscle relaxer as needed for pain. Also started on a steroid taper. She was instructed to follow-up with her primary provider. She was given warnings to return to the ER Differential Diagnosis Differential diagnosis: Likely lumbar radiculopathy, sciatica and strain of lumbar region Lab Data Attestation: I reviewed the patient's lab results. Labs: UCG Bedside Result Negative Reference Range: Negative Imaging Data Radiologist's impression: ITS Impressions Lumbar Spine CT 12/30/23 21:20 IMPRESSION:
[2023-12-30 22:08] VITALS: BP 144/77; PULSE 95; RESP 20; O2SAT 100
== END 2023-12-30 22:26 | disposition home or self-care (01) ==
PROVIDERS: Emergency Provider Physician Assistant; PCP Emergency Medicine
DX: M54.41 Lumbago with sciatica, right side (principal); K21.9 Gastro-esophageal reflux disease without esophagitis; Z90.49 Acquired absence of other specified parts of digestive tract
CPT/HCPCS: 72131; 81025; 96372; 99284; A9270; J1885